=== PATIENT | female | born 1950 | race Caucasian/White ===

== ENCOUNTER 2017-06-06 09:48 | Emergency (ER) | payer OTHER, MEDICAID ==
[~2017-06-06] VITALS: Ht 157.5 cm; Wt 68.9 kg
[~2017-06-06 09:48] MED LIST: ACIPHEX; ATIVAN; SOMA; TRI COR; WELLBUTRIN; ZOLOFT
[2017-06-06 10:31] LABS: Basophils # (auto) 0 uL; Basophils % (auto) 0.6 % (0.0-2.0); Eosinophils # (auto) 0.2 uL; Eosinophils % (auto) 3.8 % (0.0-7.0); Hematocrit 43.9 % (36.0-46.0); Hemoglobin 14.7 g/dL (12.2-16.2); Mean Corpuscular Hemoglobin 29.4 pg (28.0-32.0); Mean Corpuscular Hgb Conc. 33.4 g/dL (32.0-36.0); Mean Corpuscular Volume 87.9 fL (80.0-100.0); Monocytes # (auto) 0.4 uL; Monocytes % (auto) 6.6 % (0.0-12.0); Neutrophils # (auto) 3.7 uL; Platelet Count (auto) 250 10^3/uL (140-450); Red Blood Cells 4.99 10^6/uL (4.0-5.20); Red Cell Distribution Width 13.7 % (11.8-14.3); White Blood Cell 6.3 10^3/uL (4.4-10.8)
[2017-06-06 11:07] LABS: Alanine Aminotransferase 34 U/L (13-56); Albumin 4.1 g/dL (3.4-5.0); Alkaline Phosphatase 87 U/L (45-117); Anion Gap 10 (5-15); Aspartate Aminotransferase 22 U/L (15-37); BUN/Creatinine Ratio 17.4; Bilirubin, Total 0.6 mg/dL (0.2-1.0); Blood Urea Nitrogen 16 mg/dL (7-18); Calcium 8.9 mg/dL (8.5-10.1); Carbon Dioxide 23 mmol/L (21-32); Chloride 109 mmol/L (98-107); GFR African American 78 mL/min; GFR Non-African American 65 mL/min; Glucose 82 mg/dL (74-106); Magnesium 2.3 mg/dL (1.6-2.6); Sodium 142 mmol/L (136-145); Total Protein 7.7 g/dL (6.4-8.2)
[2017-06-06 14:22] LABS: Urine Bacteria NONE SEEN /hpf (None Seen); Urine Blood Negative /uL (Negative); Urine Mucus FEW (None Seen); Urine Specific Gravity 1.023 (1.001-1.035); Urine WBC 2 /hpf (0 - 5)
[2017-06-06 14:33] VITALS: BP 154/92
== END 2017-06-06 16:07 | disposition home or self-care (01) ==
LOC: ER 09:48
DX: M54.12 Radiculopathy, cervical region (principal); M19.90 Unspecified osteoarthritis, unspecified site; J45.909 Unspecified asthma, uncomplicated; K21.9 Gastro-esophageal reflux disease without esophagitis; E78.5 Hyperlipidemia, unspecified; Z87.891 Personal history of nicotine dependence
CPT/HCPCS: 36415; 70450; 71046; 80053; 81001; 83735; 84484; 85025; 93005

== ENCOUNTER 2020-11-29 15:14 | Emergency (ER) | payer OTHER, MEDICAID ==
[~2020-11-29] VITALS: Ht 157.5 cm; Wt 63.5 kg
[2020-11-29 16:26] LABS: Basophils # (auto) 0 10 ^3/uL (0-0.2); Basophils % (auto) 0.6 % (0.0-2.0); Eosinophils # (auto) 0.1 10 ^3/uL (0-0.8); Eosinophils % (auto) 1.6 % (0.0-7.0); Hematocrit 40.1 % (36.0-46.0); Hemoglobin 13.9 g/dL (12.2-16.2); Lymphocytes # (auto) 0.7 10 ^3/uL (0.4-5.4); Lymphocytes % (auto) 13.1 % (10.0-50.0); Mean Corpuscular Hemoglobin 31.3 pg (28.0-32.0); Mean Corpuscular Hgb Conc. 34.6 g/dL (32.0-36.0); Mean Corpuscular Volume 90.6 fL (80.0-100.0); Monocytes # (auto) 0.3 10 ^3/uL (0-1.3); Monocytes % (auto) 5.3 % (0.0-12.0); Neutrophils # (auto) 4.1 10 ^3/uL (1.6-8.6); Neutrophils % (auto) 79.4 % (37.0-80.0); Nucleated Red Blood Cells % 0.1 %; Red Blood Cells 4.43 10^6/uL (4.0-5.20); Red Cell Distribution Width 12.6 % (11.8-14.3); White Blood Cell 5.2 10^3/uL (4.4-10.8)
[2020-11-29 16:44] LABS: Albumin 3.9 g/dL (3.4-5.0); Anion Gap 8 (5-15); Blood Urea Nitrogen 11 mg/dL (7-18); Calcium 8.9 mg/dL (8.5-10.1); Carbon Dioxide 26 mmol/L (21-32); Chloride 92 mmol/L (98-107); Glucose 114 mg/dL (74-106); Potassium 4.1 mmol/L (3.5-5.1); Sodium 126 mmol/L (136-145)
[2020-11-29 16:50] LABS: Alanine Aminotransferase 26 U/L (13-56); Alkaline Phosphatase 107 U/L (45-117); Aspartate Aminotransferase 13 U/L (15-37); BUN/Creatinine Ratio 19.3; Bilirubin, Total 0.4 mg/dL (0.2-1.0); GFR African American 134 mL/min; GFR Non-African American 111 mL/min; Total Protein 7.3 g/dL (6.4-8.2)
[2020-11-29 17:50] VITALS: BP 109/77
== END 2020-11-29 18:02 | disposition home or self-care (01) ==
LOC: ER 15:14
DX: R55 Syncope and collapse (principal); R42 Dizziness and giddiness; K21.9 Gastro-esophageal reflux disease without esophagitis; E78.5 Hyperlipidemia, unspecified; J45.909 Unspecified asthma, uncomplicated; Z87.891 Personal history of nicotine dependence; Z79.899 Other long term (current) drug therapy; Z88.8 Allergy status to other drugs, medicaments and biological substances
CPT/HCPCS: 36415; 70450; 80053; 84484; 85025; 93005

== ENCOUNTER 2021-04-01 11:06 | Inpatient (IN) | payer OTHER, MEDICAID ==
[~2021-04-01] VITALS: Ht 157.5 cm; Wt 64.1 kg
[2021-04-01 12:30] LABS: Basophils # (auto) 0 10 ^3/uL (0-0.2); Basophils % (auto) 0.8 % (0.0-2.0); Eosinophils # (auto) 0.1 10 ^3/uL (0-0.8); Eosinophils % (auto) 1.3 % (0.0-7.0); Hematocrit 37.3 % (36.0-46.0); Hemoglobin 13.2 g/dL (12.2-16.2); Lymphocytes # (auto) 1.2 10 ^3/uL (0.4-5.4); Lymphocytes % (auto) 21.4 % (10.0-50.0); Mean Corpuscular Hemoglobin 31.6 pg (28.0-32.0); Mean Corpuscular Hgb Conc. 35.3 g/dL (32.0-36.0); Mean Corpuscular Volume 89.4 fL (80.0-100.0); Monocytes # (auto) 0.4 10 ^3/uL (0-1.3); Monocytes % (auto) 7.7 % (0.0-12.0); Neutrophils # (auto) 3.8 10 ^3/uL (1.6-8.6); Neutrophils % (auto) 68.8 % (37.0-80.0); Red Blood Cells 4.18 10^6/uL (4.0-5.20); Red Cell Distribution Width 12.2 % (11.8-14.3); White Blood Cell 5.5 10^3/uL (4.4-10.8)
[2021-04-01 12:47] LABS: Albumin 3.8 g/dL (3.4-5.0); Calcium 8.8 mg/dL (8.5-10.1); Potassium 4.1 mmol/L (3.5-5.1)
[2021-04-01 12:56] LABS: Bilirubin, Total 0.4 mg/dL (0.2-1.0); Total Protein 6.7 g/dL (6.4-8.2)
[2021-04-01] MEDS ORDERED: MORPHINE SULFATE INJECTION 2 MG/ML SYRG IV PRN (22:30)
[2021-04-01] MEDS ORDERED: NITROGLYCERIN 0.4 MG SL TAB SL PRN (22:30)
[2021-04-01] MEDS ORDERED: TEMAZEPAM 15 MG CAP PO PRN (22:30)
[2021-04-01] MEDS ORDERED: ACETAMINOPHEN 325 MG TAB PO PRN (22:30)
[2021-04-01] MEDS ORDERED: ONDANSETRON HCL 4 MG/2 ML VIAL IV PRN (22:30)
[2021-04-02] VITALS (7 sets, daily range): BP systolic 95–128; BP diastolic 52–87
[2021-04-02] MEDS ORDERED: MONT-8 PO (06:14)
[2021-04-02] MEDS ORDERED: CARB200T5 PO (06:14)
[2021-04-02] MEDS ORDERED: FLUT0.05 NAS (06:14)
[2021-04-02] MEDS ORDERED: FENO145T27 PO (06:14)
[2021-04-02] MEDS ORDERED: LORA-622 PO (06:14)
[2021-04-02] MEDS ORDERED: METO25TA93 PO (06:14)
[2021-04-02] MEDS ORDERED: OMEP20TA PO (06:14)
[2021-04-02] MEDS ORDERED: ALBU108A5 PO (06:14)
[2021-04-02] MEDS ORDERED: CHOL20002 PO (06:14)
[2021-04-02] MEDS ORDERED: BUPRTAB3 PO ×2 (06:14)
[2021-04-02] MEDS ORDERED: LORA1TAB23 PO (06:14)
[2021-04-02] MEDS: buPROPion HCL 75 MG TAB PO SCH ×2 (06:19→18:49)
[2021-04-02 07:11] LABS: Basophils # (auto) 0 10 ^3/uL (0-0.2); Basophils % (auto) 0.4 % (0.0-2.0); Eosinophils # (auto) 0.1 10 ^3/uL (0-0.8); Eosinophils % (auto) 1.4 % (0.0-7.0); Hematocrit 37.1 % (36.0-46.0); Hemoglobin 13.1 g/dL (12.2-16.2); Lymphocytes % (auto) 18.4 % (10.0-50.0); Mean Corpuscular Hemoglobin 31.8 pg (28.0-32.0); Mean Corpuscular Hgb Conc. 35.4 g/dL (32.0-36.0); Mean Corpuscular Volume 89.9 fL (80.0-100.0); Monocytes # (auto) 0.4 10 ^3/uL (0-1.3); Monocytes % (auto) 7.6 % (0.0-12.0); Neutrophils # (auto) 4.1 10 ^3/uL (1.6-8.6); Neutrophils % (auto) 72.2 % (37.0-80.0); Nucleated Red Blood Cells % 0.1 %; Red Blood Cells 4.13 10^6/uL (4.0-5.20); Red Cell Distribution Width 12.1 % (11.8-14.3); White Blood Cell 5.7 10^3/uL (4.4-10.8)
[2021-04-02 07:35] LABS: Calcium 8.8 mg/dL (8.5-10.1); Potassium 4.2 mmol/L (3.5-5.1)
[2021-04-02 07:37] LABS: BUN/Creatinine Ratio 31.1
[2021-04-02] MEDS ORDERED: ADENOSINE 56 MG in GIVE UN-DILUTED 0 ML IV STA (09:46)
[2021-04-02] MEDS: ASPirin 81 mg TAB PO SCH (14:10)
[2021-04-02] MEDS: PANTOPRAZOLE 40 MG TAB PO SCH (14:11)
[2021-04-02] MEDS: METOPROLOL SUCCINATE XL 50 MG TAB PO SCH (14:11)
[2021-04-02] MEDS: ENOXAPARIN SOD 40 MG/0.4 ML SYRINGE SC SCH (14:12)
[2021-04-02] MEDS ORDERED: ATORVASTATIN 20 MG TAB PO SCH (22:00)
[2021-04-03] MEDS: buPROPion HCL 75 MG TAB PO SCH (06:06)
[2021-04-03 09:00] VITALS: BP 103/62
[2021-04-03] MEDS: METOPROLOL SUCCINATE XL 50 MG TAB PO SCH (09:23)
[2021-04-03] MEDS: PANTOPRAZOLE 40 MG TAB PO SCH (09:23)
[2021-04-03] MEDS: ASPirin 81 mg TAB PO SCH (09:23)
[2021-04-03] MEDS: ENOXAPARIN SOD 40 MG/0.4 ML SYRINGE SC SCH (09:24)
== END 2021-04-03 12:30 | disposition home or self-care (01) | DRG 309 ==
LOC: ER 11:19 → TELE 22:19 → TELE-CENTR 23:49
PROVIDERS: ADMIT Nurse Practitioner; ATTEND Family Medicine
DX: R00.2 Palpitations (principal); I24.9 Acute ischemic heart disease, unspecified; I49.3 Ventricular premature depolarization; E78.00 Pure hypercholesterolemia, unspecified; E78.5 Hyperlipidemia, unspecified; I10 Essential (primary) hypertension; J45.909 Unspecified asthma, uncomplicated; F32.A Depression, unspecified; F41.9 Anxiety disorder, unspecified; K21.9 Gastro-esophageal reflux disease without esophagitis; M19.90 Unspecified osteoarthritis, unspecified site; Z20.822 Contact with and (suspected) exposure to COVID-19
CPT/HCPCS: 36415; 71045; 78452; 80048; 80053; 83880; 84443; 84484; 85025; 85379; 87426; 93005; 93017; 93306; G0378; J0153

== ENCOUNTER 2022-05-20 11:48 | Emergency (ER) | payer OTHER, MEDICAID ==
[~2022-05-20] VITALS: Ht 152.4 cm; Wt 59.0 kg
[~2022-05-20 11:48] MED LIST changes: -ACIPHEX; +ALBU108A5 PO; -ATIVAN; +BUPRTAB3 PO; +CARB200T5 PO; +CHOL20002 PO; +FENO145T27 PO; +FLUT0.05 NAS; +LORA-622 PO; +LORA1TAB23 PO; +METO25TA93 PO; +MONT-8 PO; +OMEP20TA PO; -SOMA; -WELLBUTRIN; -ZOLOFT
[2022-05-20] MEDS ORDERED: SODIUM CHLORIDE 0.9% 1,000 ML IV ONE (12:15)
[2022-05-20] MEDS ORDERED: ONDANSETRON HCL 4 MG/2 ML VIAL IV ONE ×2 (12:15→18:00)
[2022-05-20 13:08] LABS: Basophils # (auto) 0 10 ^3/uL (0-0.2); Basophils % (auto) 0.4 % (0.0-2.0); Eosinophils # (auto) 0.2 10 ^3/uL (0-0.8); Eosinophils % (auto) 1.6 % (0.0-7.0); Hematocrit 40.4 % (36.0-46.0); Hemoglobin 13.9 g/dL (12.2-16.2); Lymphocytes # (auto) 0.9 10 ^3/uL (0.4-5.4); Lymphocytes % (auto) 8.9 % (10.0-50.0); Mean Corpuscular Hgb Conc. 34.4 g/dL (32.0-36.0); Mean Corpuscular Volume 84.4 fL (80.0-100.0); Monocytes # (auto) 0.7 10 ^3/uL (0-1.3); Monocytes % (auto) 7.1 % (0.0-12.0); Neutrophils # (auto) 8.5 10 ^3/uL (1.6-8.6); Nucleated Red Blood Cells % 0.2 %; Red Blood Cells 4.79 10^6/uL (4.0-5.20); Red Cell Distribution Width 13.7 % (11.8-14.3); White Blood Cell 10.3 10^3/uL (4.4-10.8)
[2022-05-20 13:27] LABS: INR 0.98 (0.9-1.15); Partial Thromboplastin Time 24.6 sec (24.6-33.4)
[2022-05-20 13:52] LABS: Albumin 3.2 g/dL (3.4-5.0); BUN/Creatinine Ratio 22.5 (10.0-20.0); Bilirubin, Total 0.6 mg/dL (0.2-1.0); Calcium 9.5 mg/dL (8.5-10.1); Total Protein 6.2 g/dL (6.4-8.2)
[2022-05-20] MEDS ORDERED: LORazepam 2MG/ML-1ML VIAL IV ONE (20:15)
[2022-05-21] MEDS ORDERED: SODIUM CHLORIDE 0.9% 1,000 ML IV ONE ×2 (00:45→14:15)
[2022-05-21] MEDS ORDERED: ONDANSETRON HCL 4 MG/2 ML VIAL IV ONE ×2 (00:45→14:45)
[2022-05-21] MEDS ORDERED: LORazepam 2MG/ML-1ML VIAL IV ONE (17:30)
[2022-05-21] MEDS ORDERED: METOPROLOL SUCCINATE XL 50 MG TAB PO ONE (20:30)
[2022-05-21] MEDS ORDERED: METOPROLOL TARTRATE 25 MG TAB PO ONE (20:30)
[2022-05-21 23:23] VITALS: BP 130/83
== END 2022-05-21 23:55 | disposition short-term general hospital (02) ==
LOC: EDBD 11:48 → ER 11:48
DX: K56.609 Unspecified intestinal obstruction, unspecified as to partial versus complete obstruction (principal); J45.909 Unspecified asthma, uncomplicated; K21.9 Gastro-esophageal reflux disease without esophagitis; E78.5 Hyperlipidemia, unspecified; Z87.891 Personal history of nicotine dependence; Z20.822 Contact with and (suspected) exposure to COVID-19
CPT/HCPCS: 36415; 71045; 74176; 80053; 84484; 85025; 85610; 85730; 87426; 96361; 96374; 96375; 96376; 99285; J2060; J2405; J7030

== ENCOUNTER 2022-06-11 12:38 | Emergency (ER) | payer OTHER, MEDICAID ==
[~2022-06-11] VITALS: Ht 152.4 cm; Wt 55.6 kg
[2022-06-11 18:00] VITALS: BP 110/60
== END 2022-06-11 18:13 | disposition home or self-care (01) ==
LOC: ER 12:38
DX: L03.311 Cellulitis of abdominal wall (principal); E78.5 Hyperlipidemia, unspecified; J45.909 Unspecified asthma, uncomplicated; K21.9 Gastro-esophageal reflux disease without esophagitis; Z87.891 Personal history of nicotine dependence; Z48.815 Encounter for surgical aftercare following surgery on the digestive system